=== PATIENT | male | born 1930 | race American Indian/Alaskan Native ===

== ENCOUNTER 2017-08-31 06:53 | Emergency (ER) | payer MEDICARE, OTHER ==
[2017-08-31] MEDS ORDERED: Ondansetron 4 MG/2 ML SDV IV ONE (06:54)
[2017-08-31] MEDS ORDERED: Morphine 2 MG/ML Syringe IVPUSH ONE ×2 (06:54→10:07)
--- NOTE | 2017-08-31 06:55 | EDM.PDOC ---
ED HPI GENERAL MEDICAL PROBLEM - General Chief Complaint: Chest Pain Stated Complaint: CHEST PAIN Time Seen by Provider: 08/31/17 06:51 Source of Information: Reports: Patient History Limitations: Reports: No Limitations - History of Present Illness INITIAL COMMENTS - FREE TEXT/NARRATIVE: onset mid sternal chest pain both sides since 3am, been taking NTG total of 5 pain still same and not gone, so came here. Chest Pain Score (Numeric/FACES): 0 - Related Data Allergies Allergy/AdvReac Type Severity Reaction Status Date / Time ampicillin Allergy Hives Verified 08/31/17 07:35 cefazolin Allergy Hives Verified 08/31/17 07:35 celecoxib [From Celebrex] Allergy Cough Verified 08/31/17 07:35 clopidogrel bisulfate Allergy Cough Verified 08/31/17 07:35 [From Plavix] cyclobenzaprine Allergy Hives Verified 08/31/17 07:35 hydrochlorothiazide Allergy Hives Verified 08/31/17 07:35 [From Dyazide] lisinopril Allergy Cough Verified 08/31/17 07:35 strawberry Allergy Hives Verified 08/31/17 07:35 triamterene [From Dyazide] Allergy Hives Verified 08/31/17 07:35 Home Meds: Home Meds Areds 1 tab BID 12/04/14 [History] Digoxin [Lanoxin] 1.25 mcg PO DAILY 12/04/14 [History] Fish Oil/Ostrander-3 Fatty Acids [Fish Oil 1,000 MG] 3 cap PO DAILY 12/04/14 [ History] Insulin Detemir [Levemir Flextouch] 60 unit SQ DAILY 12/04/14 [History] Isosorbide Mononitrate [Imdur] 30 mg PO DAILY 12/04/14 [History] Losartan [Cozaar] 50 mg PO DAILY 12/04/14 [History] Pravastatin Sodium [Pravastatin (Pravachol)] 80 mg PO DAILY 12/04/14 [History] sitaGLIPtin Phos/Metformin HCl [Janumet 50-1,000 MG] 1 each PO BID 12/04/14 [ History] Clopidogrel [Plavix] 1 tab PO DAILY 05/03/15 [History] Past Medical History HEENT History: Reports: Cataract, Impaired Vision Cardiovascular History: Reports: CAD, High Cholesterol, Hypertension, NC, Pacemaker Respiratory History: Reports: None Gastrointestinal History: Reports: None Other Genitourinary History: 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 ED EXAM, GENERAL - Physical Exam Exam: See Below Exam Limited By: No Limitations General Appearance: Alert, WD/WN, Mild Distress, Other (chest discomfort) Ears: Hearing Grossly Normal Throat/Mouth: Normal Voice, No Airway Compromise Head: Atraumatic Neck: Non-Tender, Full Range of Motion Respiratory/Chest: No Respiratory Distress Cardiovascular: Regular Rate, Rhythm GI/Abdominal: Soft, Non-Tender Neurological: Alert, Oriented, Normal Cognition, Normal Gait, No Motor/Sensory Deficits Psychiatric: Normal Affect, Normal Mood Skin Exam: Warm, Dry, Normal Color Lymphatic: No Adenopathy Course - Vital Signs Last Recorded V/S: Last Vital Signs Temp 37.0 C 08/31/17 13:49 Pulse 81 08/31/17 13:49 Resp 18 08/31/17 13:49 BP 123/57 L 08/31/17 13:49 Pulse Ox 96 08/31/17 13:49 - Orders/Labs/Meds Orders: Active Orders 24 hr Category Date Time Status Cardiac Monitoring [RC] . DIRECTED Care 08/31/17 09:05 Active EKG 12 Lead [EKG Documentation Completion] [RC] ROUTINE Care 08/31/17 13:00 Active EKG 12 Lead [EKG Documentation Completion] [RC] STAT Care 08/31/17 06:50 Active Labs: Laboratory Tests 08/31/17 08/31/17 08/31/17 Range/Units 06:50 06:50 06:50 WBC 15.9 H (5.0-10.0) 10^3/uL RBC 5.09 (4.6-6.2) 10^6/uL Hgb 14.7 (14.0-18.0) g/dL Hct 43.4 (40.0-54.0) % MCV 85.3 (80-100) fL MCH 28.9 (27.0-34.0) pg MCHC 33.9 (33.0-35.0) g/dL Plt Count 179 (150-450) 10^3/uL Neut % (Auto) 80.9 H (42.2-75.2) % Lymph % (Auto) 9.8 L (20.5-50.1) % Falls % (Auto) 8.2 H (2-8) % Eos % (Auto) 0.9 L (1.0-3.0) % Baso % (Auto) 0.2 (0.0-1.0) % Sodium 136 (135-145) mmol/L Potassium 3.7 (3.6-5.0) mmol/L Chloride 103 (101-111) mmol/L Carbon Dioxide 24.0 (21.0-31.0) mmol/L Anion Gap 12.7 BUN 22 H (7-18) mg/dL Creatinine 1.2 (0.6-1.3) mg/dL Est Cr Clr Drug Dosing 49.39 mL/min Estimated GFR (MDRD) 58 BUN/Creatinine Ratio 18.33 Glucose 145 H (74-105) mg/dL Calcium 9.5 (8.4-10.2) mg/dl Total Bilirubin 1.0 (0.2-1.0) mg/dL AST 17 (10-42) IU/L ALT 12 (10-60) IU/L Alkaline Phosphatase 38 L (42-121) IU/L Creatine Kinase (26-174) IU/L Creatine Kinase Index (0-2.4) % CK-MB (CK-2) (0.4-4.7) ng/mL Troponin I 0.02 (0.00-0.02) ng/ml Total Protein 7.5 (6.7-8.2) g/dl Albumin 4.2 (3.2-5.5) g/dl Globulin 3.3 Albumin/Globulin Ratio 1.27 Digoxin 0.9 (0-2.5) ng/ml 08/31/17 08/31/17 08/31/17 Range/Units 13:00 13:00 17:05 WBC (5.0-10.0) 10^3/uL RBC (4.6-6.2) 10^6/uL Hgb (14.0-18.0) g/dL Hct (40.0-54.0) % MCV (80-100) fL MCH (27.0-34.0) pg MCHC (33.0-35.0) g/dL Plt Count (150-450) 10^3/uL Neut % (Auto) (42.2-75.2) % Lymph % (Auto) (20.5-50.1) % Falls % (Auto) (2-8) % Eos % (Auto) (1.0-3.0) % Baso % (Auto) (0.0-1.0) % Sodium (135-145) mmol/L Potassium (3.6-5.0) mmol/L Chloride (101-111) mmol/L Carbon Dioxide (21.0-31.0) mmol/L Anion Gap BUN (7-18) mg/dL Creatinine (0.6-1.3) mg/dL Est Cr Clr Drug Dosing mL/min Estimated GFR (MDRD) BUN/Creatinine Ratio Glucose (74-105) mg/dL Calcium (8.4-10.2) mg/dl Total Bilirubin (0.2-1.0) mg/dL AST (10-42) IU/L ALT (10-60) IU/L Alkaline Phosphatase (42-121) IU/L Creatine Kinase 36 33 (26-174) IU/L Creatine Kinase Index 3.6 H 3.9 H (0-2.4) % CK-MB (CK-2) 1.30 1.30 (0.4-4.7) ng/mL Troponin I 0.03 H* (0.00-0.02) ng/ml Total Protein (6.7-8.2) g/dl Albumin (3.2-5.5) g/dl Globulin Albumin/Globulin Ratio Digoxin (0-2.5) ng/ml 08/31/17 Range/Units 17:05 WBC (5.0-10.0) 10^3/uL RBC (4.6-6.2) 10^6/uL Hgb (14.0-18.0) g/dL Hct (40.0-54.0) % MCV (80-100) fL MCH (27.0-34.0) pg MCHC (33.0-35.0) g/dL Plt Count (150-450) 10^3/uL Neut % (Auto) (42.2-75.2) % Lymph % (Auto) (20.5-50.1) % Falls % (Auto) (2-8) % Eos % (Auto) (1.0-3.0) % Baso % (Auto) (0.0-1.0) % Sodium (135-145) mmol/L Potassium (3.6-5.0) mmol/L Chloride (101-111) mmol/L Carbon Dioxide (21.0-31.0) mmol/L Anion Gap BUN (7-18) mg/dL Creatinine (0.6-1.3) mg/dL Est Cr Clr Drug Dosing mL/min Estimated GFR (MDRD) BUN/Creatinine Ratio Glucose (74-105) mg/dL Calcium (8.4-10.2) mg/dl Total Bilirubin (0.2-1.0) mg/dL AST (10-42) IU/L ALT (10-60) IU/L Alkaline Phosphatase (42-121) IU/L Creatine Kinase (26-174) IU/L Creatine Kinase Index (0-2.4) % CK-MB (CK-2) (0.4-4.7) ng/mL Troponin I 0.03 H* (0.00-0.02) ng/ml Total Protein (6.7-8.2) g/dl Albumin (3.2-5.5) g/dl Globulin Albumin/Globulin Ratio Digoxin (0-2.5) ng/ml Meds: Medications Discontinued Medications Generic Name Dose Route Start Last Admin Trade Name Freq PRN Reason Stop Dose Admin Methylprednisolone Sodium Succinate 125 mg 08/31/17 10:07 08/31/17 10:22 Solu-Medrol IVPUSH 08/31/17 10:08 125 mg ONETIME ONE Administration Morphine Sulfate 2 mg 08/31/17 06:54 08/31/17 06:57 Morphine IVPUSH 08/31/17 06:55 2 mg ONETIME ONE Administration Morphine Sulfate 2 mg 08/31/17 10:07 08/31/17 10:15 Morphine IVPUSH 08/31/17 10:08 2 mg ONETIME ONE Administration Ondansetron HCl 4 mg 08/31/17 06:54 08/31/17 06:58 Zofran IV 08/31/17 06:55 4 mg ONETIME ONE Administration Departure - Departure Time of Disposition: 06:50 Disposition: Refer to Observation Condition: Fair Clinical Impression: Elevated troponin I level Chest pain Qualifiers: Chest pain type: unspecified Qualified Code(s): R07.9 - Chest pain, unspecified Instructions: Chest Wall Pain Referrals: PCP,Unobtain [Primary Care Provider] - Forms: ED Department Discharge Additional Instructions: As discussed, your labs and repeated labs during the day have remained stable, as has your EKG and you do not appear to be having any acute cardiac event. However, strongly recommend very close followup with your doctor this coming week for recheck; return any time for emergent changes. Please continue with your home meds; also see Rx for medrol dose pack to help the chest wall pain. - My Orders Last 24 Hours: My Active Orders 08/31/17 06:50 EKG 12 Lead [EKG Documentation Completion] [RC] STAT - Assessment/Plan Last 24 Hours: My Active Orders 08/31/17 06:50 EKG 12 Lead [EKG Documentation Completion] [RC] STAT
[2017-08-31] MEDS ORDERED: methylPREDNISolone Sodium Succinate 125 MG/2 ML SDV IVPUSH ONE (10:07)
[2017-08-31 13:50] VITALS: BP 123/57
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
--- NOTE | 2017-09-02 14:56 | EKG ---
08/31/2017 - BELEN CARRERA - TIME: 6:45 a.m. EKG per my reading shows ventricular paced rhythm at the rate of 90s. [facility] /[id number]
--- NOTE | 2017-09-02 14:56 | EKG ---
08/31/2017 - BELEN CARRERA - TIME: 1:11 p.m. EKG per my reading shows right bundle-branch block, first-degree AV block. [facility] /[id number]
== END 2017-08-31 18:30 | disposition other institution (70) ==
LOC: DL.ED 06:53
DX: R07.89 Other chest pain (principal); I25.10 Atherosclerotic heart disease of native coronary artery without angina pectoris; I11.9 Hypertensive heart disease without heart failure; E11.9 Type 2 diabetes mellitus without complications; I25.2 Old myocardial infarction; Z79.899 Other long term (current) drug therapy; Z88.1 Allergy status to other antibiotic agents; Z88.8 Allergy status to other drugs, medicaments and biological substances; Z91.018 Allergy to other foods; Z95.5 Presence of coronary angioplasty implant and graft; Z87.81 Personal history of (healed) traumatic fracture
CPT/HCPCS: 36415; 71045; 80053; 80162; 82550; 82553; 84484; 85025; 93005; 96374; 96375; 96376; 99285; J2270; J2405; J2930; 93010

== ENCOUNTER 2022-01-20 20:22 | Inpatient (IN) | payer MEDICARE, OTHER ==
[2022-01-20] MEDS ORDERED: 50% Dextrose in Water 50 ML Syringe IVPUSH ONE (20:35)
[2022-01-20 21:34] LABS: ANION GAP 16.2 mEq/L (7-13); CHLORIDE,CL 103 mmol/L (98-107); SODIUM,NA 140 mmol/L (136-145)
[2022-01-20 21:44] LABS: ESTIMATED GFR 60 mL/min (>=60)
[2022-01-20] MEDS ORDERED: Acetaminophen 325 MG Tab PO PRN (23:22)
[2022-01-20] MEDS ORDERED: Ondansetron 4 MG Tab.DIS PO PRN (23:22)
[2022-01-20] MEDS ORDERED: Docusate Sodium 100 MG Cap PO PRN (23:22)
[2022-01-20] MEDS ORDERED: Morphine 2 MG/ML SYRINGE IVPUSH PRN (23:22)
[2022-01-20] MEDS ORDERED: oxyCODONE 5 MG Tab PO PRN (23:22)
[2022-01-20] MEDS: Sodium Chloride 0.9% 1,000 ML IV SCH (23:53)
[2022-01-20] MEDS: Enoxaparin 60 MG/0.6 ML Syringe SUBCUT SCH (23:54)
[2022-01-20] MEDS: Aspirin 325 MG Tab PO SCH (23:55)
[2022-01-21] MEDS: Lutein/Minerals/Vit A,C & E Tab PO SCH ×2 (08:37→22:02)
[2022-01-21] MEDS: Digoxin 125 MCG Tab PO SCH (08:37)
[2022-01-21] MEDS: Enoxaparin 60 MG/0.6 ML Syringe SUBCUT SCH ×2 (08:37→21:50)
[2022-01-21] MEDS: Aspirin 325 MG Tab PO SCH (08:37)
[2022-01-21 10:17] LABS: ANION GAP 13.1 mEq/L (7-13)
[2022-01-21] MEDS: Sodium Chloride 0.9% 1,000 ML IV SCH (14:26)
[2022-01-21] MEDS: Pravastatin 20 MG Tab PO SCH (21:50)
[2022-01-21] MEDS: Clopidogrel 75 MG Tab PO SCH (21:57)
[2022-01-21] MEDS: Losartan 50 MG Tab PO SCH (22:02)
[2022-01-21] MEDS: Isosorbide Mononitrate 30 MG Tab.ER PO SCH (22:03)
[2022-01-22 07:18] LABS: ANION GAP 13.9 mEq/L (7-13)
[2022-01-22] MEDS: Enoxaparin 60 MG/0.6 ML Syringe SUBCUT SCH (09:28)
[2022-01-22] MEDS: Aspirin 325 MG Tab PO SCH (09:29)
[2022-01-22] MEDS: Lutein/Minerals/Vit A,C & E Tab PO SCH ×2 (09:29→20:40)
[2022-01-22] MEDS: Digoxin 125 MCG Tab PO SCH (09:29)
[2022-01-22] MEDS: Losartan 50 MG Tab PO SCH (20:40)
[2022-01-22] MEDS: Clopidogrel 75 MG Tab PO SCH (20:40)
[2022-01-22] MEDS: Pravastatin 20 MG Tab PO SCH (20:40)
[2022-01-22] MEDS: Isosorbide Mononitrate 30 MG Tab.ER PO SCH (20:41)
[2022-01-23] MEDS ORDERED: Enoxaparin 30 MG/0.3 ML Syringe SUBCUT SCH (09:00)
[2022-01-23] MEDS: Digoxin 125 MCG Tab PO SCH (09:55)
[2022-01-23] MEDS: Lutein/Minerals/Vit A,C & E Tab PO SCH (09:55)
[2022-01-23] MEDS: Aspirin 325 MG Tab PO SCH (09:56)
[2022-01-23 16:20] VITALS: BP 124/59; PULSE 60
== END 2022-01-23 16:45 | disposition home or self-care (01) | DRG 100 ==
LOC: DL.ED 20:22 → DL.MS 22:42
PROVIDERS: ADMIT Internal Medicine; ATTEND Internal Medicine
DX: R56.9 Unspecified convulsions (principal); R41.82 Altered mental status, unspecified; I21.9 Acute myocardial infarction, unspecified; I10 Essential (primary) hypertension; E11.649 Type 2 diabetes mellitus with hypoglycemia without coma; I25.10 Atherosclerotic heart disease of native coronary artery without angina pectoris; I50.9 Heart failure, unspecified; Z66 Do not resuscitate; Z79.899 Other long term (current) drug therapy; Z20.822 Contact with and (suspected) exposure to COVID-19; Z95.5 Presence of coronary angioplasty implant and graft; E78.00 Pure hypercholesterolemia, unspecified; Z85.528 Personal history of other malignant neoplasm of kidney; I11.0 Hypertensive heart disease with heart failure; H54.7 Unspecified visual loss; Z95.0 Presence of cardiac pacemaker; Z88.0 Allergy status to penicillin; Z88.1 Allergy status to other antibiotic agents; Z91.018 Allergy to other foods; Z79.82 Long term (current) use of aspirin; I25.2 Old myocardial infarction; Z79.01 Long term (current) use of anticoagulants; Z90.5 Acquired absence of kidney
CPT/HCPCS: 36415; 70450; 71045; 80053; 80162; 80307; 82140; 82150; 82550; 82947; 83605; 83690; 83735; 83880; 84484; 85025; 85610; 86140; 87040; 93005; U0002; 80048; 81001; 97165-GO; 99285; A9270-GY; J1650; J7030

== ENCOUNTER 2022-01-24 08:35 | Inpatient (IN) | payer MEDICARE, OTHER ==
[2022-01-24 09:41] LABS: ANION GAP 23.8 mEq/L (7-13); CHLORIDE,CL 101 mmol/L (98-107); ESTIMATED GFR 45 mL/min (>=60); SODIUM,NA 138 mmol/L (136-145)
[2022-01-24] MEDS ORDERED: Sodium Chloride 0.9% 1,000 ML IV ONE (13:26)
[2022-01-24] MEDS ORDERED: Docusate Sodium 100 MG Cap PO PRN (14:15)
[2022-01-24] MEDS ORDERED: Ondansetron 4 MG/2 ML SDV IVPUSH PRN (14:15)
[2022-01-24] MEDS ORDERED: Bisacodyl 5 MG Tab PO PRN (14:15)
[2022-01-24] MEDS ORDERED: Sodium Chloride 0.9% 1,000 ML IV SCH (14:30)
[2022-01-24] MEDS: Aspirin 325 MG Tab PO SCH (14:50)
[2022-01-24] MEDS: Enoxaparin 60 MG/0.6 ML Syringe SUBCUT SCH ×2 (16:18→20:32)
[2022-01-24] MEDS: Pravastatin 20 MG Tab PO SCH (20:32)
[2022-01-24] MEDS: Pantoprazole 40 MG Tab.CR PO SCH (20:32)
[2022-01-24] MEDS: Isosorbide Mononitrate 30 MG Tab.ER PO SCH (20:33)
[2022-01-24] MEDS: Clopidogrel 75 MG Tab PO SCH (20:34)
[2022-01-24] MEDS ORDERED: Losartan 50 MG Tab PO SCH (21:00)
[2022-01-25 07:03] LABS: ANION GAP 20.3 mEq/L (7-13)
[2022-01-25] MEDS: Aspirin 325 MG Tab PO SCH (09:10)
[2022-01-25] MEDS: Enoxaparin 60 MG/0.6 ML Syringe SUBCUT SCH ×2 (09:10→20:24)
[2022-01-25] MEDS: Digoxin 125 MCG Tab PO SCH (09:10)
[2022-01-25] MEDS ORDERED: Meropenem 0.5 GM in Sodium Chloride 0.9% 100 ML IV SCH (11:00)
[2022-01-25] MEDS: Meropenem 500 MG in Sodium Chloride 0.9% 100 ML IV SCH ×2 (11:22→18:24)
[2022-01-25] MEDS: Isosorbide Mononitrate 30 MG Tab.ER PO SCH (20:24)
[2022-01-25] MEDS: Clopidogrel 75 MG Tab PO SCH (20:24)
[2022-01-25] MEDS: Pantoprazole 40 MG Tab.CR PO SCH (20:24)
[2022-01-25] MEDS: Pravastatin 20 MG Tab PO SCH (20:24)
[2022-01-26] MEDS: Meropenem 500 MG in Sodium Chloride 0.9% 100 ML IV SCH ×3 (02:52→18:32)
[2022-01-26 07:07] LABS: ANION GAP 14.8 mEq/L (7-13)
[2022-01-26] MEDS: Acetaminophen 325 MG Tab PO PRN (09:10)
[2022-01-26] MEDS: Aspirin 325 MG Tab PO SCH (09:10)
[2022-01-26] MEDS: Digoxin 125 MCG Tab PO SCH (09:11)
[2022-01-26] MEDS: Enoxaparin 60 MG/0.6 ML Syringe SUBCUT SCH ×2 (09:12→21:12)
[2022-01-26] MEDS: Metoprolol Succinate 25 MG Tab.ER PO SCH ×2 (11:22→21:08)
[2022-01-26] MEDS: Pravastatin 20 MG Tab PO SCH (21:07)
[2022-01-26] MEDS: Clopidogrel 75 MG Tab PO SCH (21:08)
[2022-01-26] MEDS: Isosorbide Mononitrate 30 MG Tab.ER PO SCH (21:08)
[2022-01-26] MEDS: Pantoprazole 40 MG Tab.CR PO SCH (21:08)
[2022-01-27] MEDS: Meropenem 500 MG in Sodium Chloride 0.9% 100 ML IV SCH ×3 (02:56→21:22)
[2022-01-27 07:06] LABS: ANION GAP 13.9 mEq/L (7-13)
[2022-01-27] MEDS: Metoprolol Succinate 25 MG Tab.ER PO SCH ×2 (08:43→21:08)
[2022-01-27] MEDS: Digoxin 125 MCG Tab PO SCH (08:43)
[2022-01-27] MEDS: Enoxaparin 60 MG/0.6 ML Syringe SUBCUT SCH ×2 (08:44→21:06)
[2022-01-27] MEDS: Aspirin 325 MG Tab PO SCH (08:44)
[2022-01-27] MEDS: Furosemide 20 MG Tab PO SCH (10:51)
[2022-01-27] MEDS: Clopidogrel 75 MG Tab PO SCH (21:10)
[2022-01-27] MEDS: Pravastatin 20 MG Tab PO SCH (21:11)
[2022-01-27] MEDS: Isosorbide Mononitrate 30 MG Tab.ER PO SCH (21:12)
[2022-01-27] MEDS: Pantoprazole 40 MG Tab.CR PO SCH (21:13)
[2022-01-27] MEDS: Acetaminophen 325 MG Tab PO PRN (21:13)
[2022-01-28] MEDS: Meropenem 500 MG in Sodium Chloride 0.9% 100 ML IV SCH ×3 (04:12→18:39)
[2022-01-28] MEDS: Aspirin 325 MG Tab PO SCH (08:38)
[2022-01-28] MEDS: Furosemide 20 MG Tab PO SCH (08:38)
[2022-01-28] MEDS: Metoprolol Succinate 25 MG Tab.ER PO SCH ×2 (08:38→20:47)
[2022-01-28] MEDS: Digoxin 125 MCG Tab PO SCH (08:39)
[2022-01-28] MEDS: Enoxaparin 60 MG/0.6 ML Syringe SUBCUT SCH (12:27)
[2022-01-28] MEDS: Isosorbide Mononitrate 30 MG Tab.ER PO SCH (20:46)
[2022-01-28] MEDS: Pantoprazole 40 MG Tab.CR PO SCH (20:46)
[2022-01-28] MEDS: Pravastatin 20 MG Tab PO SCH (20:47)
[2022-01-28] MEDS: Clopidogrel 75 MG Tab PO SCH (20:47)
[2022-01-29] MEDS: Meropenem 500 MG in Sodium Chloride 0.9% 100 ML IV SCH (03:05)
[2022-01-29 06:50] LABS: ANION GAP 13.2 mEq/L (7-13)
[2022-01-29] MEDS ORDERED: Enoxaparin 30 MG/0.3 ML Syringe SUBCUT SCH (09:00)
[2022-01-29] MEDS: Digoxin 125 MCG Tab PO SCH (09:47)
[2022-01-29] MEDS: Enoxaparin 40 MG/0.4 ML Syringe SUBCUT SCH (09:47)
[2022-01-29] MEDS: Aspirin 325 MG Tab PO SCH (09:48)
[2022-01-29] MEDS: Metoprolol Succinate 25 MG Tab.ER PO SCH ×2 (09:48→20:41)
[2022-01-29] MEDS: Furosemide 20 MG Tab PO SCH (09:49)
[2022-01-29] MEDS: Pravastatin 20 MG Tab PO SCH (20:40)
[2022-01-29] MEDS: Isosorbide Mononitrate 30 MG Tab.ER PO SCH (20:40)
[2022-01-29] MEDS: Pantoprazole 40 MG Tab.CR PO SCH (20:40)
[2022-01-29] MEDS: Clopidogrel 75 MG Tab PO SCH (20:41)
[2022-01-30 07:36] LABS: ANION GAP 12.1 mEq/L (7-13)
[2022-01-30 07:58] VITALS: BP 96/56; PULSE 78
[2022-01-30] MEDS: Digoxin 125 MCG Tab PO SCH (08:31)
[2022-01-30] MEDS: Aspirin 325 MG Tab PO SCH (08:31)
[2022-01-30] MEDS: Furosemide 20 MG Tab PO SCH (08:31)
[2022-01-30] MEDS: Enoxaparin 40 MG/0.4 ML Syringe SUBCUT SCH (08:31)
[2022-01-30] MEDS: Metoprolol Succinate 25 MG Tab.ER PO SCH (08:32)
== END 2022-01-30 13:00 | DRG 281 ==
LOC: DL.ED 08:35 → DL.MS 13:15
PROVIDERS: ADMIT Internal Medicine; ATTEND Internal Medicine
DX: R41.82 Altered mental status, unspecified (principal); R77.8 Other specified abnormalities of plasma proteins; I21.4 Non-ST elevation (NSTEMI) myocardial infarction; N17.9 Acute kidney failure, unspecified; Z66 Do not resuscitate; Z20.822 Contact with and (suspected) exposure to COVID-19; I10 Essential (primary) hypertension; E11.9 Type 2 diabetes mellitus without complications; T68.XXXA Hypothermia, initial encounter; E78.00 Pure hypercholesterolemia, unspecified; R33.9 Retention of urine, unspecified; H54.7 Unspecified visual loss; Z88.8 Allergy status to other drugs, medicaments and biological substances; I25.10 Atherosclerotic heart disease of native coronary artery without angina pectoris; I95.9 Hypotension, unspecified; N18.30 Chronic kidney disease, stage 3 unspecified; E11.22 Type 2 diabetes mellitus with diabetic chronic kidney disease; I12.9 Hypertensive chronic kidney disease with stage 1 through stage 4 chronic kidney disease, or unspecified chronic kidney disease; Z90.49 Acquired absence of other specified parts of digestive tract; Z88.0 Allergy status to penicillin; Z88.1 Allergy status to other antibiotic agents; Z79.82 Long term (current) use of aspirin; I25.2 Old myocardial infarction; Z95.0 Presence of cardiac pacemaker; Z87.891 Personal history of nicotine dependence; Z79.899 Other long term (current) drug therapy; Z90.5 Acquired absence of kidney; Z79.02 Long term (current) use of antithrombotics/antiplatelets; Z91.018 Allergy to other foods
CPT/HCPCS: 36415; 70450; 71045; 80048; 80053; 83605; 84484; 85025; 87040; 93005; 97116-GP; 97161-GP; 97165-GO; 99223; 99232; 99233; 99238; A9270-GY; J1650; J2185; J7030; U0002